=== PATIENT | male | born 1980 | race Caucasian/White ===

== ENCOUNTER → 2018-03-28 | Day surgery (SDC) | payer MEDICARE ==
[~2018-03-28] MED LIST: ACETAMINOPHEN 1000 MG/100 ML 100 ML IV ONE; CEFAZOLIN SOD 1 GM VIAL ONE; FENTANYL CITRATE/PF 100MCG/2 ML INJ ONE; KEPPRA500 MG PO; LIDOCAINE HCL 1% LOCAL INJ 20 ML VIAL ONE; LIDOCAINE HCL 2% LOCAL INJ 5 ML SDV VIAL INJ ONE; LORAZEPAM INJ 2 MG/ML VIAL INJ PRN; LORAZEPAM INJ 2 MG/ML VIAL ONE; MIDAZOLAM HCL 2 MG/2 ML VIAL ONE; PROPOFOL IV EMULSION 10 MG/ML 20 ML VIAL ONE
--- NOTE | 2018-03-30 14:30 | Operative Report ---
DATE OF PROCEDURE: March 28, 2018 PREOPERATIVE DIAGNOSIS: Right index finger mallet deformity. POSTOPERATIVE DIAGNOSIS: Right index finger mallet deformity. PROCEDURE PERFORMED: Percutaneous fixation of right index finger distal interphalangeal joint. ANESTHESIA: MAC/local. HISTORY: The patient is a 37-year-old right-hand dominant male who approximately 2 weeks ago sustained a closed mallet injury. The risks, benefits, and alternatives of treatment were discussed with the patient and he is prepared to undergo the procedures outlined. PROCEDURE IN DETAIL: Patient was marked preoperatively in the holding area. He is brought to the operating theater and after the induction of adequate IV sedation, he was prepped and draped in a supine position and a time out was performed. A digital block utilizing 1% Xylocaine plain was placed around the base of the right index finger. The mini C-arm is then brought in and the DIP joint is placed in a slight amount of hyperextension. An 0.028 K-wire was driven retrograde through the distal phalanx and across the DIP joint, maintaining the joint in a slight hyperextension. The pin is then cut off at the level of the skin. Bactroban ointment sterile dressing is applied to the right index finger. The patient tolerates the procedure well, is brought to recovery room in satisfactory condition, and discharged with a postoperative instruction sheet as well as a followup appointment. Job#: [id number] LEXII
== END | disposition home or self-care (01) ==
LOC: OR 07:39
PROVIDERS: ATTEND Plastic Surgery
DX: M20.011 Mallet finger of right finger(s) (principal); G40.909 Epilepsy, unspecified, not intractable, without status epilepticus; Z88.4 Allergy status to anesthetic agent
CPT/HCPCS: 26432; J0690; J2001 ×2; J2060; J2250

== ENCOUNTER 2024-04-24 15:32 | Inpatient (IN) | payer MEDICARE ==
[~2024-04-24] VITALS: Ht 170.2 cm; Wt 60.8 kg
[~2024-04-24 15:32] MED LIST changes: -ACETAMINOPHEN 1000 MG/100 ML 100 ML IV ONE; +BACTRIM DS TAB1 EACH PO; -CEFAZOLIN SOD 1 GM VIAL ONE; +CEPHALEXIN500 MG PO; -FENTANYL CITRATE/PF 100MCG/2 ML INJ ONE; -LIDOCAINE HCL 1% LOCAL INJ 20 ML VIAL ONE; -LIDOCAINE HCL 2% LOCAL INJ 5 ML SDV VIAL INJ ONE; -LORAZEPAM INJ 2 MG/ML VIAL INJ PRN; -LORAZEPAM INJ 2 MG/ML VIAL ONE; -MIDAZOLAM HCL 2 MG/2 ML VIAL ONE; +OMEPRAZOLE40 MG PO; -PROPOFOL IV EMULSION 10 MG/ML 20 ML VIAL ONE; +SIMETHICONE80 MG PO; +ULTRAM 50MG50 MG PO
[2024-04-24 17:00] VITALS: TEMP 98.2
[2024-04-24 19:27] LABS: BASOPHILS # (AUTO) 0.2 (0.0-0.1); BASOPHILS % 1.1 % (0.0-1.0); EOSINOPHILS # (AUTO) 0.6 (0.0-0.4); EOSINOPHILS % 4.1 % (0.0-6.0); HEMATOCRIT 41.9 % (38.2-49.6); HEMOGLOBIN 14.1 g/dL (14.0-18.0); LYMPHOCYTES # (AUTO) 1.2 (1.0-3.2); LYMPHOCYTES % 8.5 % (18.0-39.1); MEAN CORPUSCULAR HGB CONC 33.7 g/dL (31-35); MEAN CORPUSCULAR VOLUME 95.2 fL (81-99); MONOCYTES # (AUTO) 0.9 (0.2-0.8); MONOCYTES % 6.6 % (4.4-11.3); NEUTROPHILS # (AUTO) 11.3 (2.1-6.9); NEUTROPHILS % 79.1 % (38.7-80.0); PLATELET COUNT 461 x10e3/uL (140-360); RED CELL DISTRIBUTION WIDTH 12.2 % (11.7-14.4); WHITE BLOOD COUNT 14.24 x10e3/uL (4.8-10.8)
[2024-04-24] MEDS: Morphine 4mg INJECTION 4 MG/ML INJ IV ONE (19:38)
[2024-04-24] MEDS: ONDANSETRON HCL INJ 2MG/ML 2ML 2 MG/ML VIAL IV ONE (19:38)
[2024-04-24] MEDS: SODIUM CHLORIDE 0.9% 1000ML 1,000 ML IV ONE (19:39)
[2024-04-24 19:49] LABS: ALBUMIN 3.6 g/dL (3.5-5.0); BILIRUBIN,TOTAL 0.3 mg/dL (0.2-1.2); CALCIUM 8.9 mg/dL (8.4-10.2); CREATININE, SERUM 1.03 mg/dL (0.72-1.25); TOTAL PROTEIN 7.2 g/dL (6.5-8.1)
[2024-04-24] MEDS ORDERED: IOPAMIDOL 370 MG/ML 100 ML INFUS..BTL INJ ONE (20:05)
[2024-04-24] MEDS: KETOROLAC TROMETHAMINE 30 MG/ML VIAL IV STA (20:22)
[2024-04-25] VITALS (14 sets, daily range): BP systolic 94–126; BP diastolic 56–90; PULSE 65–95; RESP 16–19; TEMP 97.3–98.1; O2SAT 96–100
[2024-04-25] MEDS: Vancomycin IV 1 GM in SODIUM CHLORIDE 0.9% 250ML 250 ML IV SCH (00:06)
[2024-04-25] MEDS: SODIUM CHLORIDE 0.9% 1000ML 1,000 ML IV SCH (00:06)
[2024-04-25] MEDS: ONDANSETRON HCL INJ 2MG/ML 2ML 2 MG/ML VIAL IV PRN ×2 (00:54→11:35)
[2024-04-25] MEDS: Morphine 4mg INJECTION 4 MG/ML INJ IV PRN ×2 (00:55→05:50)
[2024-04-25] MEDS ORDERED: POTASSIUM CHLORIDE 20 MEQ TAB CR PO PRN (01:15)
[2024-04-25] MEDS ORDERED: ACETAMINOPHEN 325 MG TAB PO PRN (01:15)
[2024-04-25] MEDS ORDERED: DEXTROSE 50% SYRINGE 50 ML IV PRN (01:15)
[2024-04-25] MEDS ORDERED: HYDRALAZINE HCL 20 MG/ML VIAL IV PRN (01:15)
[2024-04-25] MEDS ORDERED: DIPHENHYDRAMINE HCL 25 MG CAP PO PRN (01:15)
[2024-04-25] MEDS ORDERED: BENZONATATE 100 MG CAP PO PRN (01:15)
[2024-04-25] MEDS: HYDROCODONE/APAP 5MG-325MG TAB PO PRN (02:07)
[2024-04-25] MEDS: MELATONIN 5 MG TABLET PO PRN (02:07)
[2024-04-25 05:34] LABS: BASOPHILS # (AUTO) 0.1 (0.0-0.1); BASOPHILS % 0.9 % (0.0-1.0); EOSINOPHILS # (AUTO) 0.7 (0.0-0.4); EOSINOPHILS % 6.7 % (0.0-6.0); HEMATOCRIT 39.1 % (38.2-49.6); HEMOGLOBIN 12.4 g/dL (14.0-18.0); LYMPHOCYTES # (AUTO) 1.3 (1.0-3.2); LYMPHOCYTES % 12.8 % (18.0-39.1); MEAN CORPUSCULAR HEMOGLOBIN 31.3 pg (28-32); MEAN CORPUSCULAR HGB CONC 31.7 g/dL (31-35); MEAN CORPUSCULAR VOLUME 98.7 fL (81-99); MONOCYTES # (AUTO) 0.9 (0.2-0.8); MONOCYTES % 9.3 % (4.4-11.3); NEUTROPHILS # (AUTO) 7.1 (2.1-6.9); NEUTROPHILS % 69.7 % (38.7-80.0); PLATELET COUNT 400 x10e3/uL (140-360); RED BLOOD COUNT 3.96 x10e6/uL (4.3-5.7); RED CELL DISTRIBUTION WIDTH 11.9 % (11.7-14.4); WHITE BLOOD COUNT 10.11 x10e3/uL (4.8-10.8)
[2024-04-25 05:43] LABS: INR 0.92; PROTHROMBIN TIME 12.8 seconds (11.9-14.5)
[2024-04-25 05:44] LABS: PARTIAL THROMBOPLASTIN TIME 30.1 seconds (23.8-35.5)
[2024-04-25 06:14] LABS: ALBUMIN 3.1 g/dL (3.5-5.0); ANION GAP 10.2 mmol/L (8-16); BILIRUBIN,TOTAL 0.3 mg/dL (0.2-1.2); CALCIUM 8.8 mg/dL (8.4-10.2); CREATININE, SERUM 0.97 mg/dL (0.72-1.25); POTASSIUM 4.2 mmol/L (3.5-5.1); TOTAL PROTEIN 6.1 g/dL (6.5-8.1)
[2024-04-25] MEDS: ALBUTEROL/IPRATROPIUM 3 ML NEB NEB PRN (06:20)
[2024-04-25] MEDS: PANTOPRAZOLE SOD 40 MG TABEC PO SCH (07:59)
[2024-04-25] MEDS: NICOTINE 21 MG/EA PATCH TOP SCH (12:50)
[2024-04-25] MEDS: ENOXAPARIN SOD INJ 40 MG/0.4 ML SYR SC SCH (17:06)
[2024-04-26] VITALS (12 sets, daily range): BP systolic 100–113; BP diastolic 55–77; PULSE 70–85; RESP 17–18; TEMP 97.4–98.4; O2SAT 96–100
[2024-04-26] MEDS: KETOROLAC TROMETHAMINE 30 MG/ML VIAL IV PRN (01:11)
[2024-04-26 05:06] LABS: BASOPHILS # (AUTO) 0.1 (0.0-0.1); BASOPHILS % 1.5 % (0.0-1.0); EOSINOPHILS # (AUTO) 0.9 (0.0-0.4); EOSINOPHILS % 10.9 % (0.0-6.0); HEMATOCRIT 40.8 % (38.2-49.6); HEMOGLOBIN 12.9 g/dL (14.0-18.0); LYMPHOCYTES # (AUTO) 1.3 (1.0-3.2); LYMPHOCYTES % 16.5 % (18.0-39.1); MEAN CORPUSCULAR HEMOGLOBIN 31.9 pg (28-32); MEAN CORPUSCULAR HGB CONC 31.6 g/dL (31-35); MONOCYTES # (AUTO) 0.7 (0.2-0.8); MONOCYTES % 9.3 % (4.4-11.3); NEUTROPHILS # (AUTO) 4.8 (2.1-6.9); NEUTROPHILS % 60.3 % (38.7-80.0); PLATELET COUNT 436 x10e3/uL (140-360); RED BLOOD COUNT 4.04 x10e6/uL (4.3-5.7); WHITE BLOOD COUNT 7.96 x10e3/uL (4.8-10.8)
[2024-04-26 05:40] LABS: ALBUMIN 3.1 g/dL (3.5-5.0); ANION GAP 14.9 mmol/L (8-16); BILIRUBIN,TOTAL 0.2 mg/dL (0.2-1.2); CALCIUM 8.1 mg/dL (8.4-10.2); CREATININE, SERUM 1.01 mg/dL (0.72-1.25); MAGNESIUM 1.9 MG/DL (1.3-2.1); POTASSIUM 3.9 mmol/L (3.5-5.1); TOTAL PROTEIN 6.2 g/dL (6.5-8.1)
[2024-04-26] MEDS: HYDROCODONE/APAP 7.5MG-325MG 1 EA TAB PO PRN (17:08)
[2024-04-27] VITALS (10 sets, daily range): BP systolic 101–144; BP diastolic 71–98; PULSE 54–91; RESP 18; TEMP 97.4–98.1; O2SAT 96–100
[2024-04-27] MEDS ORDERED: ACETAMINOPHEN 1000 MG/100 ML 100 ML IV ONE (11:00)
[2024-04-27] MEDS ORDERED: LIDOCAINE HCL 1% LOCAL INJ 20 ML VIAL ONE (11:13)
[2024-04-27] MEDS ORDERED: LIDOCAINE JELLY 2% 10ML URO-JET ONE (11:13)
[2024-04-27] MEDS ORDERED: BUPIVACAINE 0.5%/EPI 30 ML SDV INJ ONE (11:13)
[2024-04-27] MEDS ORDERED: BUPIVACAINE 0.25% 30ML SDV ONE (11:29)
[2024-04-27] MEDS ORDERED: LIDOCAINE 1% W/EPINEPHRINE 20 ML VIAL ONE (11:29)
[2024-04-27] MEDS ORDERED: SUGAMMADEX SODIUM 200 MG/2 ML VIAL IV ONE (11:30)
[2024-04-27] MEDS ORDERED: ACETAMINOPHEN 1000 MG/100 ML IV ONE (12:08)
[2024-04-27] MEDS ORDERED: ONDANSETRON HCL INJ 2MG/ML 2ML 2 MG/ML VIAL ONE (12:08)
[2024-04-27] MEDS ORDERED: SEVOFLURANE INHAL SOLN 250 ML PEN BTL ONE (12:08)
[2024-04-27] MEDS ORDERED: LIDOCAINE HCL 2% LOCAL INJ 5 ML SDV VIAL INJ ONE (12:08)
[2024-04-27] MEDS ORDERED: DEXAMETHASONE SOD PHOS INJ 4 MG/ML SDV ONE (12:08)
[2024-04-27] MEDS ORDERED: PROPOFOL IV EMULSION 10 MG/ML 20 ML VIAL ONE (12:08)
[2024-04-27] MEDS ORDERED: HYDROCODONE/APAP 7.5MG-325MG 1 EA TAB PO PRN (12:15)
[2024-04-27] MEDS ORDERED: KETOROLAC TROMETHAMINE 30 MG/ML VIAL IV PRN (12:15)
[2024-04-27] MEDS: FENTANYL CITRATE/PF 100MCG/2 ML INJ IV ONE ×2 (12:35→12:46)
[2024-04-27] MEDS ORDERED: FENTANYL CITRATE/PF 100MCG/2 ML INJ ONE ×2 (12:37→15:27)
[2024-04-27] MEDS ORDERED: HYDROCODONE/APAP 5MG-325MG TAB PO PRN (14:45)
[2024-04-27] MEDS ORDERED: Morphine 2mg Syringe 2 MG/ML SYR IV PRN (14:45)
[2024-04-27 15:27] LABS: ANION GAP 14.7 mmol/L (8-16); CALCIUM 9.1 mg/dL (8.4-10.2); CREATININE, SERUM 0.87 mg/dL (0.72-1.25); POTASSIUM 4.7 mmol/L (3.5-5.1)
[2024-04-27] MEDS: Morphine 2mg Syringe 2 MG/ML SYR IV ONE (16:05)
[2024-04-27 16:36] LABS: AMPHETAMINES SCREEN,URINE NEGATIVE (NEGATIVE); BENZODIAZEPINES SCREEN,URINE NEGATIVE (NEGATIVE); CANNABINOIDS SCREEN,URINE NEGATIVE (NEGATIVE); METHADONE SCREEN, URINE NEGATIVE (NEGATIVE); OPIATES SCREEN,URINE POSITIVE (NEGATIVE); PHENCYCLIDINE SCREEN,URINE NEGATIVE (NEGATIVE)
[2024-04-27] MEDS: HYDROCODONE/APAP 10MG-325MG TAB PO PRN (18:45)
[2024-04-27] MEDS: Morphine 2mg Syringe 2 MG/ML SYR IV PRN (22:03)
[2024-04-28 03:10] VITALS: BP 104/70; PULSE 64; RESP 18; TEMP 98.1; O2SAT 100
[2024-04-28 06:16] LABS: BASOPHILS # (AUTO) 0.1 (0.0-0.1); BASOPHILS % 0.4 % (0.0-1.0); EOSINOPHILS # (AUTO) 0.1 (0.0-0.4); EOSINOPHILS % 0.9 % (0.0-6.0); HEMATOCRIT 38.7 % (38.2-49.6); HEMOGLOBIN 12.6 g/dL (14.0-18.0); LYMPHOCYTES # (AUTO) 1.3 (1.0-3.2); LYMPHOCYTES % 9.7 % (18.0-39.1); MEAN CORPUSCULAR HEMOGLOBIN 32.1 pg (28-32); MEAN CORPUSCULAR HGB CONC 32.6 g/dL (31-35); MEAN CORPUSCULAR VOLUME 98.5 fL (81-99); MONOCYTES # (AUTO) 0.9 (0.2-0.8); MONOCYTES % 6.8 % (4.4-11.3); NEUTROPHILS # (AUTO) 10.6 (2.1-6.9); NEUTROPHILS % 81.5 % (38.7-80.0); PLATELET COUNT 417 x10e3/uL (140-360); RED BLOOD COUNT 3.93 x10e6/uL (4.3-5.7); RED CELL DISTRIBUTION WIDTH 11.6 % (11.7-14.4); WHITE BLOOD COUNT 12.97 x10e3/uL (4.8-10.8)
[2024-04-28 06:29] VITALS: PULSE 70; RESP 20; O2SAT 95
[2024-04-28 06:34] LABS: ANION GAP 11.8 mmol/L (8-16); CALCIUM 8.8 mg/dL (8.4-10.2); CREATININE, SERUM 1.27 mg/dL (0.72-1.25); POTASSIUM 4.8 mmol/L (3.5-5.1)
[2024-04-28 08:28] VITALS: BP 109/58; PULSE 63; RESP 18; TEMP 97.7; O2SAT 100
[2024-04-28 08:45] VITALS: BP 109/58; PULSE 63; RESP 18; TEMP 97.7; O2SAT 100
[2024-04-28 11:37] VITALS: BP 104/80; PULSE 81; RESP 18; TEMP 97.8; O2SAT 100
[2024-04-28] MEDS: DOCUSATE SODIUM 100 MG CAP PO PRN (12:15)
[2024-04-28] MEDS: KETOROLAC TROMETHAMINE 30 MG/ML VIAL IV PRN (16:36)
[2024-04-28 16:38] VITALS: BP 105/58; PULSE 81; RESP 18; TEMP 98.1; O2SAT 99
[2024-04-28] MEDS ORDERED: LEVOFLOXACIN250 MG PO (17:02)
[2024-04-28] MEDS ORDERED: FLAGYL375 MG PO (17:03)
[2024-04-29] MEDS ORDERED: CLINDAMYCIN HC300 MG PO (00:30)
[2024-04-29] MEDS ORDERED: MUPIROCIN15 GM PR (00:30)
[2024-04-29] MEDS ORDERED: KETOROLAC TROME10 MG PO (00:30)
[2024-04-29] MEDS ORDERED: DOXYCYCLINE HY100 MG PO (00:31)
== END 2024-04-28 18:00 | disposition home or self-care (01) | DRG 572 ==
LOC: ER 18:02 → ERHOLD 23:23 → MED/SURG2 04-25 01:06 → OBSVTOIN 04-25 13:20
PROVIDERS: ADMIT Internal Medicine; ATTEND Internal Medicine
PROC: 0JB90ZZ Excision of Buttock Subcutaneous Tissue and Fascia, Open Approach (ICD-10-PCS; principal; 2024-04-27 11:27)
DX: L02.31 Cutaneous abscess of buttock (principal); L03.317 Cellulitis of buttock; G40.909 Epilepsy, unspecified, not intractable, without status epilepticus; F17.200 Nicotine dependence, unspecified, uncomplicated; G89.29 Other chronic pain; M25.511 Pain in right shoulder; M79.601 Pain in right arm; Z71.3 Dietary counseling and surveillance; Z68.21 Body mass index [BMI] 21.0-21.9, adult; Z53.29 Procedure and treatment not carried out because of patient's decision for other reasons
CPT/HCPCS: 36415; 74177; 80048; 80053; 80202; 80307; 83036; 83690; 83735; 85025; 85610; 85730; 87040; 94640; 94799; 99252; 99284; G0378; J1100; J1650; J1885; J2001; J2270; J2405; J2543; J7030; J7050; Q9967

== ENCOUNTER 2024-04-29 00:10 | Emergency (ER) | payer MEDICARE ==
[~2024-04-29] VITALS: Ht 170.2 cm; Wt 60.8 kg
[~2024-04-29 00:10] MED LIST changes: +FLAGYL375 MG PO; +LEVOFLOXACIN250 MG PO
[2024-04-29 00:20] VITALS: PULSE 104; RESP 22; TEMP 98.4; O2SAT 100
[2024-04-29] MEDS ORDERED: KETOROLAC TROMETHAMINE 60 MG/2 ML VIAL ONE (00:27)
[2024-04-29] MEDS: KETOROLAC TROMETHAMINE 60 MG/2 ML VIAL IM STA (00:28)
[2024-04-29] MEDS ORDERED: MUPIROCIN15 GM PR (00:30)
[2024-04-29] MEDS ORDERED: CLINDAMYCIN HC300 MG PO (00:30)
[2024-04-29] MEDS ORDERED: KETOROLAC TROME10 MG PO (00:30)
[2024-04-29] MEDS ORDERED: DOXYCYCLINE HY100 MG PO (00:31)
== END 2024-04-29 00:59 | disposition home or self-care (01) ==
LOC: ER 00:22
DX: G89.18 Other acute postprocedural pain (principal); G40.909 Epilepsy, unspecified, not intractable, without status epilepticus; F17.210 Nicotine dependence, cigarettes, uncomplicated
CPT/HCPCS: 99283; J1885

== ENCOUNTER 2025-02-24 06:48 | Emergency (ER) | payer MEDICARE ==
[~2025-02-24] VITALS: Ht 170.2 cm; Wt 65.8 kg
[~2025-02-24 06:48] MED LIST changes: +CLINDAMYCIN HC300 MG PO; +DOXYCYCLINE HY100 MG PO; +KETOROLAC TROME10 MG PO; +MUPIROCIN15 GM PR
[2025-02-24 07:00] VITALS: TEMP 97.7
[2025-02-24] MEDS ORDERED: KETOROLAC TROMETHAMINE 30 MG/ML VIAL IM STA (07:08)
[2025-02-24] MEDS: KETOROLAC TROMETHAMINE 30 MG/ML VIAL IV STA (07:18)
[2025-02-24 07:58] VITALS: PULSE 97; RESP 17
[2025-02-24] MEDS: ONDANSETRON HCL INJ 2MG/ML 2ML 2 MG/ML VIAL IV STA (08:19)
[2025-02-24] MEDS: HYDROCODONE/APAP 7.5MG-325MG 1 EA TAB PO ONE (08:19)
[2025-02-24] MEDS ORDERED: ULTRAM 50MG50 MG PO (09:03)
[2025-02-24 09:22] VITALS: BP 117/75; PULSE 89; RESP 17; O2SAT 95
== END 2025-02-24 09:18 | disposition home or self-care (01) ==
LOC: ER 06:56
DX: M25.511 Pain in right shoulder (principal); S42.031A Displaced fracture of lateral end of right clavicle, initial encounter for closed fracture; V19.9XXA Pedal cyclist (driver) (passenger) injured in unspecified traffic accident, initial encounter; Y93.55 Activity, bike riding; Y92.89 Other specified places as the place of occurrence of the external cause; G40.909 Epilepsy, unspecified, not intractable, without status epilepticus; F17.210 Nicotine dependence, cigarettes, uncomplicated
CPT/HCPCS: 70450; 71250; 72125; 73000; 73030; 99284; J1885; J2405

== ENCOUNTER 2025-05-03 05:31 | Emergency (ER) | payer MEDICARE ==
[~2025-05-03] VITALS: Ht 170.2 cm; Wt 63.5 kg
[2025-05-03 05:32] VITALS: TEMP 98.7
[2025-05-03] MEDS: KETOROLAC TROMETHAMINE 60 MG/2 ML VIAL IM ONE (06:05)
[2025-05-03 07:00] VITALS: PULSE 96; RESP 18; O2SAT 100
[2025-05-03] MEDS ORDERED: NAPROXEN375 MG PO (07:05)
== END 2025-05-03 07:32 | disposition home or self-care (01) ==
LOC: ER 05:40
DX: M25.511 Pain in right shoulder (principal)
CPT/HCPCS: 73030; 99283; J1885